=== PATIENT | male | born 1985 | race Two or more races ===

== ENCOUNTER 2024-08-19 10:20 | Inpatient (IN) | payer OTHER ==
[~2024-08-19] VITALS: Ht 177.8 cm; Wt 88.5 kg
[2024-08-19] MEDS ORDERED: KETOROLAC TROMETHAMINE 15 MG/ML VIAL IM ONE (12:00)
[2024-08-19] MEDS ORDERED: ACETAMINOPHEN ES 500 MG TABLET ONE (12:09)
[2024-08-19] MEDS: ACETAMINOPHEN ES 500 MG TABLET PO ONE (12:47)
[2024-08-19] MEDS: IV NS 0.9% 500 ML BAG IV ONE (12:47)
[2024-08-19] MEDS: KETOROLAC TROMETHAMINE 15 MG/ML VIAL IV ONE (12:48)
[2024-08-19 12:49] LABS: BASOPHILS # (AUTO) 0.1 K/uL (0.0-0.2); BASOPHILS % (AUTO) 0.5 % (0.0-2.0); EOSINOPHILS # (AUTO) 0.1 K/uL (0.0-0.7); EOSINOPHILS % (AUTO) 0.4 % (0.0-6.0); HEMATOCRIT 38 % (39-51); HEMOGLOBIN 12.7 g/dL (13.5-17.5); LYMPHOCYTES # (AUTO) 1.3 K/uL (0.8-4.8); LYMPHOCYTES % (AUTO) 7.8 % (20.0-44.0); MEAN CORPUSCULAR HEMOGLOBIN 32 PG (26.0-33.0); MEAN CORPUSCULAR HGB CONC 34 g/dl (31.0-36.0); MEAN CORPUSCULAR VOLUME 94 fL (80-96); MONOCYTES # (AUTO) 1.1 K/uL (0.1-1.30); MONOCYTES % (AUTO) 6.2 % (2.0-12.0); NEUTROPHILS # (AUTO) 14.6 K/uL (1.8-8.9); NEUTROPHILS % (AUTO) 85.1 % (43.0-81.0); PLATELET COUNT (AUTO) 328 K/uL (150-450); RED CELL DISTRIBUTION WIDTH 13.5 % (11.5-15.0); WHITE BLOOD COUNT (AUTO) 17.1 K/uL (4.3-11.0)
[2024-08-19 13:07] LABS: CREATININE 1.1 mg/dL (0.6-1.3); POTASSIUM 3.8 mmol/L (3.5-5.1)
[2024-08-19 13:09] LABS: INR 1.04 (0.91-1.10)
[2024-08-19] MEDS ORDERED: DEXT30TA10 PO (13:23)
[2024-08-19] MEDS ORDERED: HYDR-500 PO (13:23)
[2024-08-19] MEDS ORDERED: SERT100T PO (13:23)
[2024-08-19] MEDS ORDERED: MORPHINE SULFATE INJ 4 MG/ML DISP.SYRIN ONE ×2 (16:34→21:27)
[2024-08-19] MEDS: MORPHINE SULFATE INJ 2 MG/ML DISP.SYRIN IV ONE ×2 (16:43→21:29)
[2024-08-20] MEDS: HYDROMORPHONE 1 MG/1 ML DISP.SYRIN IV ONE (07:00)
[2024-08-20] MEDS ORDERED: HYDROMORPHONE 1 MG/1 ML DISP.SYRIN ONE (07:02)
[2024-08-20 10:50] LABS: BASOPHILS % (AUTO) 0.3 % (0.0-2.0); EOSINOPHILS % (AUTO) 0.3 % (0.0-6.0); HEMATOCRIT 37 % (39-51); HEMOGLOBIN 12.4 g/dL (13.5-17.5); LYMPHOCYTES # (AUTO) 1.3 K/uL (0.8-4.8); LYMPHOCYTES % (AUTO) 8.5 % (20.0-44.0); MEAN CORPUSCULAR HEMOGLOBIN 32 PG (26.0-33.0); MEAN CORPUSCULAR HGB CONC 34 g/dl (31.0-36.0); MEAN CORPUSCULAR VOLUME 95 fL (80-96); MONOCYTES # (AUTO) 1.7 K/uL (0.1-1.30); MONOCYTES % (AUTO) 11.2 % (2.0-12.0); NEUTROPHILS # (AUTO) 12.2 K/uL (1.8-8.9); NEUTROPHILS % (AUTO) 79.7 % (43.0-81.0); PLATELET COUNT (AUTO) 322 K/uL (150-450); RED BLOOD CELL COUNT(AUTO) 3.87 MIL/uL (4.5-6.0); RED CELL DISTRIBUTION WIDTH 13.7 % (11.5-15.0); WHITE BLOOD COUNT (AUTO) 15.4 K/uL (4.3-11.0)
[2024-08-20 10:58] LABS: CALCIUM, SERUM 9.5 mg/dL (8.5-10.1); POTASSIUM 3.8 mmol/L (3.5-5.1)
[2024-08-20 11:10] LABS: INR 1.03 (0.91-1.10); PARTIAL THROMBOPLASTIN TIME 29.3 SEC (24.3-34.3); PROTHROMBIN TIME 10.9 SECS (9.2-11.1)
[2024-08-20] MEDS ORDERED: ONDANSETRON HCL/PF 4 MG/2 ML VIAL IVP PRN (11:30)
[2024-08-20] MEDS: IV NS 0.9% 1,000 ML IV PRN (11:39)
[2024-08-20] MEDS: HYDROMORPHONE 1 MG/1 ML DISP.SYRIN IV PRN (12:31)
[2024-08-20] MEDS ORDERED: BUPIVACAINE 0.25% 75 MG/30 ML VIAL ONE (14:30)
[2024-08-20] MEDS ORDERED: ANESTHESIA TRAY IN PYXIS 1 EA TRAY MC ONE (14:30)
[2024-08-20] MEDS ORDERED: FENTANYL PF 250MCG/5ML AMPUL ONE (14:42)
[2024-08-20] MEDS ORDERED: ROCURONIUM BROMIDE 50 MG/5 ML ONE (14:42)
[2024-08-20] MEDS ORDERED: TRANEXAMIC ACID 1,000 MG/10 ML VIAL ONE (15:42)
[2024-08-20] MEDS ORDERED: VANCOMYCIN 1 GM VIAL ONE (18:01)
[2024-08-20] MEDS ORDERED: BUPIVACAINE 0.5 % PF 150 MG/30 ML VIAL ONE (18:06)
[2024-08-20] MEDS ORDERED: ROPIVACAINE HCL 0.5% 5 MG/ML 30ML VIAL ONE (18:08)
[2024-08-20 20:05] VITALS: BP 138/94; TEMP 98.2; O2SAT 99
[2024-08-20 20:20] VITALS: BP 140/99; TEMP 98.2; O2SAT 99
[2024-08-20 20:35] VITALS: BP 138/100; TEMP 98.4; O2SAT 97
[2024-08-20 20:50] VITALS: BP 136/100; TEMP 98.4; O2SAT 98
[2024-08-20] MEDS: ACETAMINOPHEN 325 MG TABLET PO PRN (21:42)
[2024-08-21] MEDS: CEFAZOLIN 2 GM in IV D5W 100 ML IV SCH (01:00)
[2024-08-21 04:00] VITALS: BP 139/101; TEMP 98.2; O2SAT 98
[2024-08-21] MEDS: HYDROCODONE/APAP 5/325MG TABLET PO PRN (04:32)
[2024-08-21 08:19] VITALS: BP 139/98; TEMP 98.1; O2SAT 96
[2024-08-21 08:58] LABS: CREATININE 0.8 mg/dL (0.6-1.3); MAGNESIUM 2.5 mg/dL (1.8-2.4); POTASSIUM 3.9 mmol/L (3.5-5.1)
[2024-08-21] MEDS ORDERED: Medication Not On Formulary EA (Amphet Asp/Amphet/D-Amphet (Amphetamine Salts 30 Mg Tab) PO SCH (09:00)
[2024-08-21] MEDS: ALPRAZOLAM 0.25 MG TABLET PO ONE (12:08)
[2024-08-21 13:14] LABS: BASOPHILS % (AUTO) 0.3 % (0.0-2.0); EOSINOPHILS # (AUTO) 0.1 K/uL (0.0-0.7); EOSINOPHILS % (AUTO) 0.5 % (0.0-6.0); HEMATOCRIT 33 % (39-51); LYMPHOCYTES # (AUTO) 0.9 K/uL (0.8-4.8); MEAN CORPUSCULAR HEMOGLOBIN 32 PG (26.0-33.0); MEAN CORPUSCULAR HGB CONC 34 g/dl (31.0-36.0); MEAN CORPUSCULAR VOLUME 95 fL (80-96); MONOCYTES % (AUTO) 8.1 % (2.0-12.0); NEUTROPHILS # (AUTO) 10.8 K/uL (1.8-8.9); NEUTROPHILS % (AUTO) 84.1 % (43.0-81.0); PLATELET COUNT (AUTO) 262 K/uL (150-450); RED BLOOD CELL COUNT(AUTO) 3.42 MIL/uL (4.5-6.0); RED CELL DISTRIBUTION WIDTH 13.4 % (11.5-15.0); WHITE BLOOD COUNT (AUTO) 12.9 K/uL (4.3-11.0)
[2024-08-21 16:17] VITALS: BP 134/99; TEMP 98.4; O2SAT 98
[2024-08-21] MEDS: K PHOS NEUTRAL 250 MG TABLET PO ONE (16:29)
[2024-08-21] MEDS: SERTRALINE HCL 50 MG TABLET PO SCH (17:26)
[2024-08-21] MEDS: ENOXAPARIN SODIUM 40 MG/0.4 ML DISP.SYRIN SQ SCH (17:27)
[2024-08-21 20:00] VITALS: BP 140/96; TEMP 98.4; O2SAT 97
[2024-08-22 04:00] VITALS: BP 136/86; TEMP 97.7; O2SAT 96
[2024-08-22 06:54] LABS: BASOPHILS # (AUTO) 0.1 K/uL (0.0-0.2); BASOPHILS % (AUTO) 0.5 % (0.0-2.0); EOSINOPHILS # (AUTO) 0.1 K/uL (0.0-0.7); EOSINOPHILS % (AUTO) 0.8 % (0.0-6.0); HEMATOCRIT 33 % (39-51); LYMPHOCYTES # (AUTO) 1.4 K/uL (0.8-4.8); LYMPHOCYTES % (AUTO) 9.5 % (20.0-44.0); MEAN CORPUSCULAR HEMOGLOBIN 32 PG (26.0-33.0); MEAN CORPUSCULAR HGB CONC 34 g/dl (31.0-36.0); MEAN CORPUSCULAR VOLUME 95 fL (80-96); MONOCYTES # (AUTO) 1.5 K/uL (0.1-1.30); MONOCYTES % (AUTO) 9.7 % (2.0-12.0); NEUTROPHILS # (AUTO) 11.9 K/uL (1.8-8.9); NEUTROPHILS % (AUTO) 79.5 % (43.0-81.0); PLATELET COUNT (AUTO) 296 K/uL (150-450); RED BLOOD CELL COUNT(AUTO) 3.45 MIL/uL (4.5-6.0); RED CELL DISTRIBUTION WIDTH 13.4 % (11.5-15.0)
[2024-08-22 06:57] LABS: CALCIUM, SERUM 8.3 mg/dL (8.5-10.1); CREATININE 0.8 mg/dL (0.6-1.3); MAGNESIUM 2.4 mg/dL (1.8-2.4); PHOSPHORUS 1.9 mg/dL (2.5-4.9); POTASSIUM 3.5 mmol/L (3.5-5.1)
[2024-08-22 08:00] VITALS: BP 139/92; TEMP 98.6; O2SAT 98
[2024-08-22 16:00] VITALS: BP 139/92; TEMP 98.6; O2SAT 98
[2024-08-22] MEDS: K PHOS NEUTRAL 250 MG TABLET PO ONE (16:22)
[2024-08-22 20:00] VITALS: BP 143/93; TEMP 98.4; O2SAT 98
[2024-08-22] MEDS: hydrOXYzine PAMOATE 25 MG CAPSULE PO PRN (22:20)
[2024-08-23 04:00] VITALS: BP 137/87; TEMP 99; O2SAT 97
[2024-08-23 08:38] VITALS: BP 139/92; TEMP 98.6; O2SAT 98
[2024-08-23] MEDS ORDERED: HYDR-3972 PO (10:14)
[2024-08-23] MEDS ORDERED: APIX2.5T PO (10:14)
== END 2024-08-23 11:49 | disposition home or self-care (01) | DRG 481 ==
LOC: ER 10:27 → MEDSG1 08-20 10:11
PROVIDERS: ADMIT Nurse Practitioner Acute Care; ATTEND Nurse Practitioner Acute Care
PROC: 0QS604Z Reposition Right Upper Femur with Internal Fixation Device, Open Approach (ICD-10-PCS; principal; 2024-08-20 15:00)
DX: S72.031A Displaced midcervical fracture of right femur, initial encounter for closed fracture (principal); D68.69 Other thrombophilia; J98.11 Atelectasis; W01.0XXA Fall on same level from slipping, tripping and stumbling without subsequent striking against object, initial encounter; D72.829 Elevated white blood cell count, unspecified; E66.9 Obesity, unspecified; Z20.822 Contact with and (suspected) exposure to COVID-19; I10 Essential (primary) hypertension; Z74.09 Other reduced mobility; S72.091A Other fracture of head and neck of right femur, initial encounter for closed fracture; Y93.89 Activity, other specified; Y92.89 Other specified places as the place of occurrence of the external cause; Z68.28 Body mass index [BMI] 28.0-28.9, adult
CPT/HCPCS: 36415; 71045-TC; 73502; 73700-TC; 80048-TC; 83735-TC; 84100-TC; 85025-TC; 85610-TC; 85730-TC; 86850-TC; 93307-TC; 97110-TC; 97116-TC; 97530-TC; A4217; A4223; A6209; C1713; G0378; J0690; J1171; J1650; J1885; J2270; J2704; J2795; J3010; J3370; J3490; J7030; J7040; J7060; Q0177

== ENCOUNTER 2025-05-14 19:52 | Emergency (ER) | payer OTHER ==
[~2025-05-14] VITALS: Ht 172.7 cm; Wt 94.3 kg
[~2025-05-14 19:52] MED LIST: APIX2.5T PO; DEXT30TA10 PO; HYDR-3972 PO; HYDR-500 PO; SERT100T PO
[2025-05-14] MEDS ORDERED: ONDANSETRON HCL/PF 4 MG/2 ML VIAL IV ONE (22:30)
[2025-05-14] MEDS ORDERED: MORPHINE SULFATE INJ 2 MG/ML DISP.SYRIN IV ONE (22:30)
[2025-05-14] MEDS ORDERED: PROPOFOL 20 ML IV ONE (22:39)
[2025-05-14] MEDS: IV NS 0.9% 1,000 ML BAG IV ONE (22:51)
[2025-05-14] MEDS: PROPOFOL 200 MG/20 ML VIAL IV ONE (23:43)
[2025-05-15 01:19] VITALS: BP 135/95; TEMP 98.4; O2SAT 97
== END 2025-05-15 01:20 | disposition home or self-care (01) ==
LOC: ER 19:54
DX: T84.020A Dislocation of internal right hip prosthesis, initial encounter (principal); I10 Essential (primary) hypertension; Z79.01 Long term (current) use of anticoagulants; Z88.1 Allergy status to other antibiotic agents; Z60.2 Problems related to living alone; Y79.2 Prosthetic and other implants, materials and accessory orthopedic devices associated with adverse incidents
CPT/HCPCS: 99285; 27250; 96360; 73502; 73501; J2704; J7030

== ENCOUNTER 2025-05-19 18:09 | Emergency (ER) | payer OTHER ==
[~2025-05-19] VITALS: Ht 177.8 cm; Wt 113.4 kg
[2025-05-19] MEDS ORDERED: PROPOFOL 20 ML IV ONE (19:33)
[2025-05-19] MEDS: PROPOFOL 200 MG/20 ML VIAL IV ONE (19:46)
[2025-05-19 20:47] VITALS: BP 124/81; TEMP 98.1; O2SAT 98
== END 2025-05-19 20:49 | disposition home or self-care (01) ==
LOC: ER 20:00
DX: T84.020A Dislocation of internal right hip prosthesis, initial encounter (principal); Z79.01 Long term (current) use of anticoagulants; Z88.1 Allergy status to other antibiotic agents; X58.XXXA Exposure to other specified factors, initial encounter; Y93.89 Activity, other specified; Y92.89 Other specified places as the place of occurrence of the external cause; Y99.9 Unspecified external cause status
CPT/HCPCS: 27252; 99152; 73502; 99285; 73501; J2704; G0500